=== PATIENT | male | born 1955 | race Caucasian/White ===

== ENCOUNTER 2024-04-20 11:30 | Observation (INO) | payer MEDICARE, OTHER, SELFPAY ==
[2024-04-20] VITALS (26 sets, daily range): BP systolic 119–177; BP diastolic 66–110; PULSE 109–126; TEMP 36.6–38.2; O2SAT 92–100; BMI 22.4
--- NOTE | 2024-04-20 11:53 | ECG_ITS ---
[facility] Test Date: 2024-04-20 Pat Name: MU KYLE Department: Room: - Gender: Male Legal Intern: : 1955 Requested By: Order Number: [id number] Reading MD: TIAGO PABLO Measurements Intervals [place] Rate: 117 P: 270 ME: 228 QRS: -54 QRSD: 94 T: 21 QT: 318 QTc: 387 Interpretive Statements 1220 Rapid atrial rhythm 2231 First degree AV block 2420 RSR (QR) in lead V1/V2, consistent with right ventricular conduction delay 2630 Left anterior fascicular block 9150 abnormal ECG No previous ECG available for comparison Electronically Signed On 04-20-2024 22:08:22 EDT by TIAGO PABLO
--- NOTE | 2024-04-20 12:08 | ED.GENADUL1 ---
HPI HPI - General Adult General Chief complaint: Upper Respiratory Infection Stated complaint: CHILLS, ABDOMINAL PAIN Time Seen by Provider: 04/20/24 11:52 Source: patient Mode of arrival: walk-in History of Present Illness HPI narrative: Patient is a 69-year-old male who is presenting to the ER with multiple complaints. Patient's chief concern is 1 week of intermittent fever, chills, night sweats, nausea. Patient has not seen a doctor in over 6 years, patient called [facility] office today trying to be seen as an outpatient and since patient has not been seen in over 6 years, he is no longer a current patient so he came to the ER. Patient has had a 8 to 10 pound weight loss in the past month. Patient has had 5-6 months of swelling and protrusion to his mid abdomen that is not painful, slightly getting bigger. Patient has no difficulty with flatulence, no difficulty with bowel movements. Patient has had 2 years of urinary incontinence, he has not seen any physician for that either. Patient has never had a stress test or echocardiogram. Patient did have a colonoscopy approximately 4 years ago. Patient has no recent contacts. Mild myalgia and arthralgia recently. All systems are negative except as noted/marked. All systems reviewed and otherwise negative. Nurses note and vital signs reviewed and patient is not hypoxic. General: The patient appears well and in no apparent distress. Patient is resting comfortably on cart. Patient is not toxic, lethargic, or listless Skin: Warm, dry, no pallor noted. There is no rash noted. No petechiae, purpura. Head: Normocephalic, atraumatic Eye: Normal conjunctiva, no drainage, EOMI. PERRL Ears, Nose, Mouth, and Throat: oral mucosa is moist. Nares patent. Mouth without vesicles. Cardiovascular: Regular Rate and Rhythm, no murmur, gallop, rub Respiratory: Patient is in no distress, no accessory muscle use, lungs are clear to auscultation, no wheezing, rales or rhonchi Back: non-tender, no CVA tenderness bilaterally to percussion. No CT LS midline pain GI: Patient has a somewhat firm protrusion to his mid abdomen that is above his umbilicus, goes approximately from his left flank to his right flank, no pulsatile mass, not tender to palpate. No flank pain or CVA tenderness bilateral. No suprapubic tenderness to palpation. Bowel sounds x 4. No tenderness to palpation, no pulsatile masses appreciated. No rebound, guarding, or rigidity noted. Abdominal protrusion/distention for 5 to 6 months. Musculoskeletal: Patient has full range of motion of all of the extremities, no motor, sensory, or focal neurological deficits Neurological: A&O x4, normal speech Psychiatric: Cooperative Related Data Home Medications ?Medication ?Instructions ?Recorded ?Confirmed No Known Home Medications 04/20/24 04/20/24 Allergies Allergy/AdvReac Type Severity Reaction Status Date / Time No Known Drug Allergies Allergy Verified 04/20/24 11:37 Opioid HPI Opioid Management Most Recent Opioid Data: No Data to Display PFSH PFSH Social History Little interest or pleasure in doing things: not at all Feeling down, depressed, or hopeless: not at all Exam Constitutional Vital Signs, click to edit/add: Last Vital Signs Temp 97.9 F 04/20/24 11:37 Pulse 121 H 04/20/24 14:00 Resp 19 04/20/24 14:00 BP 138/86 04/20/24 14:05 Pulse Ox 99 04/20/24 12:40 O2 Del Method Room Air 04/20/24 11:37 Course Vital Signs Vital signs: Vital Signs Temperature 97.9 F 04/20/24 11:37 Pulse Rate 120 H 04/20/24 11:37 Respiratory Rate 18 04/20/24 11:37 Blood Pressure 147/94 H 04/20/24 11:37 Pulse Oximetry 99 04/20/24 11:37 Oxygen Delivery Method Room Air 04/20/24 11:37 Temperature 97.9 F 04/20/24 11:37 Pulse Rate 121 H 04/20/24 14:00 Respiratory Rate 19 04/20/24 14:00 Blood Pressure 138/86 04/20/24 14:05 Pulse Oximetry 99 04/20/24 12:40 Oxygen Delivery Method Room Air 04/20/24 11:37 Medical Decision Making MDM Narrative Medical decision making narrative: Patient BUN and creatinine were 35/2.29. Patient does not have elevated white blood cell count. Patient CT does show significantly distended urinary bladder with associated severe bilateral hydronephrosis. Patient also has urinary tract infection. Patient has been given 2 L of lactated Ringer's, also has been given 1 g Rocephin. Patient has been tachycardic in the 130s/120s, this is why a second liter of IV fluids was given in spite of the national shortage on IV fluids secondary to her cancer. Patient had a Mcgovern catheter placed, patient had over 2200 cc of fluid that has been drained in increments over thousand. Patient did not have a vasovagal response. Patient will be admitted for urinary tension, was given IV Rocephin. We do not have urology on-call. 1410 I did speak to the hospitalist, Dr. Aguilar. He is willing to accept the patient in admission, treat with antibiotics, IV fluids, and CRP and creatinine improved. Patient has no kidney history that he is aware 1640 Dr Aguilar came to see and evaluate the patient in the ER. Patient is feeling significantly better after the Mcgovern catheter was placed. See David RN nursing documentation A copy of patient's CT report and lab work has been given to the patient as well. Lab Data Labs: Lab Results 04/20/24 04/20/24 04/20/24 Range/Units 11:56 12:15 12:57 WBC 9.5 (4.0-11.0) 10^3/uL RBC 3.65 L (4.70-6.10) 10^6/uL Hgb 11.5 L (14.0-18.0) g/dL Hct 34.7 L (42.0-54.0) % MCV 95.1 H (80.0-94.0) fL MCH 31.5 (25.9-34.0) pg MCHC 33.1 (29.9-35.2) g/dL RDW 11.9 (11.0-15.0) % Plt Count 223 (150-450) 10^3/uL MPV 11.2 (9.5-13.5) fL Seg Neuts % (Manual) 74.0 (43.0-75.0) Lymphocytes % (Manual) 12.0 L (20.5-60.0) % Monocytes % (Manual) 14.0 H (1.7-12.0) % Eosinophils % (Manual) 0.0 L (0.9-7.0) % Basophils % (Manual) 0.0 L (0.2-2.0) % Neutrophils # (Manual) 7.03 H (1.4-6.5) 10^3/uL Lymphocytes # (Manual) 1.14 L (1.20-3.80) 10^3/uL Monocytes # (Manual) 1.33 H (0.30-0.80) 10^3/uL Eosinophils # (Manual) 0.00 (0.00-0.70) 10^3/uL Basophils # (Manual) 0.00 (0.00-0.10) 10^3/uL PT 11.8 H (9.0-11.6) sec INR 1.13 VBG pH 7.414 (7.330-7.430) VBG pCO2 41.7 (40.0-52.0) mmHg Sodium 138 (136-145) mmol/L Potassium 3.9 (3.5-5.1) mmol/L Chloride 102 (98-107) mmol/L Carbon Dioxide 25.0 (21.0-32.0) mmol/L Anion Gap 14.9 BUN 35.0 H (7.0-18.0) mg/dL Creatinine 2.29 H (0.70-1.30) mg/dL Est GFR ( Amer) 35 L (>=60 mL/min/1.73m^2) Est GFR (Non-Af Amer) 28 L (>=60 mL/min/1.73m^2) BUN/Creatinine Ratio 15.3 Glucose 115 H (74-106) mg/dL Lactate 0.8 (0.4-2.0) mmol/L Calcium 9.4 (8.5-10.1) mg/dL Magnesium 1.9 (1.8-2.4) mg/dL Total Bilirubin 1.0 (0.2-1.0) mg/dL AST 22 (15-37) U/L ALT 42 (16-63) U/L Alkaline Phosphatase 123 H (46-116) U/L Troponin I High Sens 14.5 (4.0-76.1) pg/mL Total Protein 7.1 (6.4-8.2) g/dL Albumin 2.9 L (3.4-5.0) g/dL Globulin 4.2 g/dL Albumin/Globulin Ratio 0.7 Urine Color Yellow (YELLOW) Urine Clarity Cloudy A (CLEAR) Urine pH 6.0 (5.0-9.0) Ur Specific [place] 1.010 (1.005-1.025) Urine Protein 100 A (NEG/TRACE) mg/dL Urine Glucose (UA) Negative (NEGATIVE) mg/dL Urine Ketones Negative (NEGATIVE) mg/dL Urine Occult Blood Small A (NEGATIVE) Urine Nitrite Negative (NEGATIVE) Urine Bilirubin Negative (NEGATIVE) Urine Urobilinogen 0.2 (0.2-1.0) EU/dL Ur Leukocyte Esterase Large A (NEGATIVE) Urine RBC 2-5 A (0-2) #/HPF Urine WBC >100 A (NONE SEEN) #/HPF Ur Squamous Epith Cells Rare (NONE/RARE) #/LPF Ur Transition Epith Cell Rare A (NONE SEEN) #/LPF Urine Crystals None seen (None Seen) #/HPF Urine Bacteria Moderate A (NONE SEEN) #/HPF Urine Casts None seen (NONE SEEN) #/LPF Urine Mucus Trace A (NONE SEEN) Ur Culture Indicated? Yes SARS-CoV-2 Ag (CV2AG) Negative (NEGATIVE) ECG Data Attestation: I personally reviewed and interpreted this ECG as follows: (EKG interpretation. Tachycardic sinus rhythm at 117, normal axis deviation. QTc of 387. AK interval of 228, first-degree [place]. [address], reading also left anterior fascicular block) Discharge Plan Discharge Chief Complaint: Upper Respiratory Infection Clinical Impression: Urinary retention, LYNDA (acute kidney injury), Urinary tract infection, Flu-like symptoms Patient Disposition: Admitted as Observation Time of Disposition Decision: 14:19 Condition: Fair
[2024-04-20 12:13] LABS: Hematocrit 34.7 % (42.0-54.0); Hemoglobin 11.5 g/dL (14.0-18.0); Mean Corpuscular HGB Conc 33.1 g/dL (29.9-35.2); Mean Corpuscular Hemoglobin 31.5 pg (25.9-34.0); Mean Corpuscular Volume 95.1 fL (80.0-94.0); Mean Platelet Volume 11.2 fL (9.5-13.5); Platelet Count 223 10^3/uL (150-450); Red Blood Count 3.65 10^6/uL (4.70-6.10); Red Cell Distribution Width 11.9 % (11.0-15.0); White Blood Count 9.5 10^3/uL (4.0-11.0)
[2024-04-20] MEDS: LACTATED RINGER'S SOLUTION 1,000 ML 999 ML IV (12:13)
[2024-04-20 12:16] LABS: PCO2 VBG 41.7 mmHg (40.0-52.0); pH VBG 7.414 (7.330-7.430)
[2024-04-20 12:29] LABS: INR 1.13; Prothrombin Time 11.8 sec (9.0-11.6)
[2024-04-20 12:34] LABS: Lactate/Lactic Acid 0.8 mmol/L (0.4-2.0)
[2024-04-20 12:41] LABS: Internal Control Within Normal Limits; SARS-CoV-2 Ag NEGATIVE (NEGATIVE)
[2024-04-20 12:42] LABS: Alanine Aminotransferase 42 U/L (16-63); Albumin Globulin Ratio 0.7; Albumin Level 2.9 g/dL (3.4-5.0); Alkaline Phosphatase 123 U/L (46-116); Anion Gap 14.9; Aspartate Amino Transferase 22 U/L (15-37); BUN Creatinine Ratio 15.3; Calcium 9.4 mg/dL (8.5-10.1); Chloride 102 mmol/L (98-107); Estimated GFR (African America 35 (>=60 mL/min/1.73m^2); Estimated GFR (Non-African Ame 28 (>=60 mL/min/1.73m^2); Globulin 4.2 g/dL; Glucose 115 mg/dL (74-106); Magnesium 1.9 mg/dL (1.8-2.4); Potassium 3.9 mmol/L (3.5-5.1); Sodium 138 mmol/L (136-145); Total Protein 7.1 g/dL (6.4-8.2); Troponin I High Sensitivity 14.5 pg/mL (4.0-76.1)
[2024-04-20 12:43] LABS: Lymphocytes Absolute Manual 1.14 10^3/uL (1.20-3.80); Monocytes Absolute Manual 1.33 10^3/uL (0.30-0.80); Segmented Neut Absolute Manual 7.03 10^3/uL (1.4-6.5)
--- NOTE | 2024-04-20 13:02 | CT_ITS ---
[address] [address] Patient Name: MU KYLE MRN: [id number] date: 1955 Sex: M Assigned Patient Location: ER Current Patient Location: ER Accession/Order Number: [id number] Exam Date: 04/20/2024 12:58 Report Date: 04/20/2024 13:19 At the request of: HAYLEY GR Procedure: CT abdomen pelvis wo con EXAMINATION: CT abdomen pelvis wo con HISTORY: Distended abdomen COMPARISON: No relevant comparison available. TECHNIQUE: Axial, Coronal, and Sagittal images were created without IV contrast. Dose reduction techniques were achieved by using automated exposure control and/or adjustment of mA and/or kV according to patient size and/or use of iterative reconstruction technique. FINDINGS: LUNG BASES: No visible pulmonary or pleural disease. Cardiomegaly LIVER: No enlargement, atrophy, abnormal density, or significant focal lesion. BILIARY: No dilatation or calcification. PANCREAS: No lesion, fluid collection, ductal dilatation, or atrophy. SPLEEN: No enlargement or focal lesion. ADRENALS: No mass or enlargement. KIDNEYS: Severe bilateral hydroureteronephrosis with the ureters measuring up to 4 cm in diameter BOWEL/MESENTERY: No visible mass, obstruction, or bowel wall thickening. Normal appendix AORTA/VASCULAR: No aortic aneurysm. Moderate calcific atherosclerosis RETROPERITONEUM: No mass or adenopathy. LYMPH NODES: No adenopathy. URINARY BLADDER: Marked distention of the urinary bladder which measures 20.7 cm in craniocaudal dimension with irregular wall thickening PELVIC ORGANS: Enlarged prostate gland with calcifications. The prostate gland measures 5 cm in diameter ABDOMINAL WALL: No mass or hernia. BONES: No bony lesion or fracture. OTHER: Some mild scattered ascites primarily in the right paracolic gutter CT/CT abdomen pelvis wo con IMPRESSION: Marked distention of the urinary bladder with associated severe bilateral hydroureteronephrosis. I favor bladder outlet obstruction with an enlarged prostate gland Electronically authenticated by: SANDRA EMERY Date: 04/20/2024 13:19
[2024-04-20 13:11] LABS: Bilirubin Urine NEGATIVE (NEGATIVE); Blood Urine SMALL (NEGATIVE); Clarity Urine CLOUDY (CLEAR); Color Urine YELLOW (YELLOW); Glucose Urine UA NEGATIVE (NEGATIVE); Ketones Urine NEGATIVE (NEGATIVE); Leukocyte Esterase Urine LARGE (NEGATIVE); Nitrite Urine NEGATIVE (NEGATIVE); Protein Urine 100 mg/dL (NEG/TRACE); Urobilinogen Urine 0.2 EU/dL (0.2-1.0)
[2024-04-20 13:19] LABS: Bacteria Urine MODERATE #/HPF (NONE SEEN); Cast Seen? NONE SEEN #/LPF (NONE SEEN); Crystals Seen? None Seen #/HPF (None Seen); Mucus Urine TRACE (NONE SEEN); Squamous Epithelial Cell Urine RARE #/LPF (NONE/RARE); Transitional Epi Cells Urine RARE #/LPF (NONE SEEN); WBC Urine >100 #/HPF (NONE SEEN)
[2024-04-20 13:20] LABS: Urine Culture Indicated YES
[2024-04-20] MEDS: CEFTRIAXONE 1,000 MG in 0.9 % SODIUM CHLORIDE 50 ML 100 MG IV (14:33)
[2024-04-20] MEDS: LACTATED RINGER'S SOLUTION 1,000 ML 1000 ML IV (14:33)
--- NOTE | 2024-04-20 14:58 | PM.HP ---
HPI H&P: HPI History of Present Illness Chief complaint: CHILLS, ABDOMINAL PAIN, URINARY RETENTION, UTI LYNDA Narrative: 69-year-old male with no known past medical history presented to ER with inability to urinate, lower abdominal pressure/pain. According to the patient, he has noticed difficulty in urination and lower abdominal pressure/pain for 6 months now. For past couple of days he noticed that he was having fevers and chills. His abdominal pain/pressure has been progressively getting worse until this morning where he could not get comfortable so he decided come to ED for further evaluation. Patient has not seen a physician for years and does not take any medications currently. On workup in ER, he was found to have severe bladder outlet obstruction secondary to enlarged prostate resulting in severe bilateral hydroureteronephrosis resulting in acute kidney injury from obstructive uropathy. Urinary catheter was inserted in ER and over 1 L of urine was drained with improvement in patient's symptoms the patient was admitted for observation to ensure his renal function is improving. Of note, there was some xavier blood noted in Larios catheter. Opioid HPI Opioid Management Most Recent Pain and Opioid Data: No Data to Display Review of Systems ROS Status of ROS 10 or more systems reviewed and unremarkable except as noted in history and below PFSH PFSH Social History (Updated 04/20/24 @ 15:02 by Shaikh Lauren MD) Within the past year, how often did you have a drink containing alcohol: monthly or less Within the past year, how many standard drinks containing alcohol did you have on a typical day: 1 or 2 Within the past year, how often did you have six or more drinks on one occasion: never Total score: 0 Score interpretation: A score less than 4 is consistent with normal alcohol consumption. Smoking status: Never smoker Non-prescribed substance use: denies use Little interest or pleasure in doing things: not at all Feeling down, depressed, or hopeless: not at all Meds Home Medications and Allergies Home Medications ?Medication ?Instructions ?Recorded ?Confirmed ?Type No Known Home Medications 04/20/24 04/20/24 History Allergies Allergy/AdvReac Type Severity Reaction Status Date / Time No Known Drug Allergies Allergy Verified 04/20/24 11:37 Exam Constitutional Vital Signs, click to edit/add: Last Vital Signs Temp 97.9 F 04/20/24 11:37 Pulse 121 H 04/20/24 14:00 Resp 19 04/20/24 14:00 BP 138/86 04/20/24 14:05 Pulse Ox 99 04/20/24 12:40 O2 Del Method Room Air 04/20/24 11:37 Documenting provider has reviewed patient's vital signs: yes Common normals: no apparent distress and oriented x3 General appearance: cooperative HENTX Common normals: normocephalic and head/scalp atraumatic Head and scalp: normocephalic and atraumatic Eye Common normals: conjunctivae normal and no scleral icterus Conjunctiva: conjunctiva(e) normal Respiratory Common normals: normal respiratory effort and clear to auscultation bilaterally Effort & inspection: able to speak in complete sentences Auscultation: clear to auscultation bilaterally Cardio Common normals: regular rate, S1 normal heart sound and S2 normal heart sound Rate: regular rate Heart sounds: S1 normal and S2 normal GI Common normals: Normal to inspection, nondistended, normoactive bowel sounds present, soft to palpation, non-tender and no hepatosplenomegaly Palpation: soft and no hepatosplenomegaly Bladder/kidney exam: catheter in place Catheter type (Male): urethral (xavier blood noted in catheter) Extremity Common normals: no clubbing, cyanosis or edema Neuro Common normals: oriented x3, moves all extremities and no focal motor deficits Psych Common normals: mental status grossly normal, denies hallucinations, denies homicidal ideation and denies suicidal ideation Results Labs Labs: Short CBC 04/20/24 Range/Units 11:56 WBC 9.5 (4.0-11.0) 10^3/uL Hgb 11.5 L (14.0-18.0) g/dL Hct 34.7 L (42.0-54.0) % Plt Count 223 (150-450) 10^3/uL BMP 04/20/24 11:56 Sodium 138 Potassium 3.9 Chloride 102 Carbon Dioxide 25.0 BUN 35.0 H Creatinine 2.29 H Glucose 115 H Calcium 9.4 Liver Function 04/20/24 Range/Units 11:56 Total Bilirubin 1.0 (0.2-1.0) mg/dL AST 22 (15-37) U/L ALT 42 (16-63) U/L Alkaline Phosphatase 123 H (46-116) U/L Albumin 2.9 L (3.4-5.0) g/dL Urine 04/20/24 Range/Units 12:57 Urine Color Yellow (YELLOW) Urine Clarity Cloudy A (CLEAR) Urine pH 6.0 (5.0-9.0) Ur Specific [place] 1.010 (1.005-1.025) Urine Protein 100 A (NEG/TRACE) mg/dL Urine Glucose (UA) Negative (NEGATIVE) mg/dL ABG ABG results: 04/20/24 11:56 VBG pH 7.414 VBG pCO2 41.7 Assessment and Plan Assessment and Plan (1) Urinary tract infection: Assessment and Plan: On IV rocephine. F/u urine cx Qualifiers: Urinary tract infection type: acute cystitis Hematuria presence: with hematuria Qualified Code(s): N30.01 - Acute cystitis with hematuria (2) Hydroureteronephrosis: Assessment and Plan: due to bladder outlet obstruction, relieved after larios insertion. Repeat US tomorrow for follow up (3) LYNDA (acute kidney injury): Assessment and Plan: LYNDA from bladder outlet obstruction.. Suspect he will likely has some residual renal dysfunction as this has been going on for 6 months. Monitor UO, serum cr closely. (4) Enlarged prostate: Assessment and Plan: PSA ordered. Started on Floamx. Will need outpatient w/u by Urology. (5) Urinary retention: Assessment and Plan: Due to nelraged prostate. PSA ordered. Catheter in place. Most likely he will need to go home with urinary catheter. (6) Elevated blood pressure reading without diagnosis of hypertension: Assessment and Plan: likely because of severe pain as patient was really uncomfortable from bladder outlet obstruction. Improved now. Monitor BP Iv Hydralazine as needed Urinary Catheter Management Urinary Catheter Management Urethral: Cath placed during this visit: yes Urethral indwelling: Yes Reason for continuing: urinary obstruction Insertion date: 04/20/24 Insertion time: 14:00
--- NOTE | 2024-04-20 16:26 | ECG_ITS ---
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
[2024-04-20] MEDS: 0.9 % SODIUM CHLORIDE 1,000 ML 1000 ML IV (16:27)
[2024-04-20] MEDS: LACTATED RINGER'S SOLUTION 1,000 ML 125 ML IV (16:27)
--- NOTE | 2024-04-20 17:13 | XR_ITS ---
The [address] [address] Patient Name: MU KYLE MRN: [id number] date: 1955 Sex: M Assigned Patient Location: MS Current Patient Location: MS Accession/Order Number: [id number] Exam Date: 04/20/2024 17:45 Report Date: 04/20/2024 19:43 At the request of: SHAIKH YANIRA Procedure: XR chest 1V EXAM: XR chest 1V HISTORY: chest pain . Chills. Body aches. COMPARISON: TECHNIQUE: AP upright portable. FINDINGS: Cardiomediastinal silhouette and pulmonary vascularity are within normal limits. The lungs and the costophrenic angles are clear. XR/XR chest 1V IMPRESSION: No acute cardiopulmonary disease. Electronically authenticated by: EDUARDO CORONADO Date: 04/20/2024 19:43
[2024-04-20] MEDS: DILTIAZEM HCL 25 MG/5 ML VIAL 10 MG IV (17:19)
[2024-04-20 17:22] LABS: Troponin I High Sensitivity 21.5 pg/mL (4.0-76.1)
[2024-04-20] MEDS: ACETAMINOPHEN 325 MG TABLET 650 MG PO (20:13)
[2024-04-20] MEDS: TAMSULOSIN HCL 0.4 MG CAPSULE PO (20:14)
[2024-04-20] MEDS: METOPROLOL TARTRATE 25 MG TABLET PO (20:14)
[2024-04-20] MEDS: OXYCODONE HCL 5 MG TABLET PO (20:14)
[2024-04-20] MEDS: ONDANSETRON PF 4 MG/2 ML VIAL IV (20:14)
[2024-04-20 20:46] LABS: Hematocrit 31.6 % (42.0-54.0); Hemoglobin 10.8 g/dL (14.0-18.0)
[2024-04-20 21:05] LABS: Troponin I High Sensitivity 23.2 pg/mL (4.0-76.1)
[2024-04-20 23:11] LABS: Basophils Percent Auto 0.4 % (0.2-2.0); Eosinophils Percent Auto 0.3 % (0.9-7.0); Hematocrit 29.6 % (42.0-54.0); Hemoglobin 10.1 g/dL (14.0-18.0); Immature Granulocytes Abs Auto 0.03 10^3/uL (0.00-0.03); Immature Granulocytes Pct Auto 0.3 % (0.0-0.5); Lymphocytes Absolute Auto 0.6 10^3/uL (1.2-3.8); Lymphocytes Percent Auto 6.5 % (20.5-60.0); Mean Corpuscular HGB Conc 34.1 g/dL (29.9-35.2); Mean Corpuscular Hemoglobin 32.3 pg (25.9-34.0); Mean Corpuscular Volume 94.6 fL (80.0-94.0); Monocytes Absolute Auto 1.4 10^3/uL (0.3-0.8); Monocytes Percent Auto 13.7 % (1.7-12.0); Neutrophils Absolute Auto 7.8 10^3/uL (1.4-6.5); Neutrophils Percent Auto 78.8 % (43.0-75.0); Platelet Count 241 10^3/uL (150-450); Red Blood Count 3.13 10^6/uL (4.70-6.10); Red Cell Distribution Width 11.9 % (11.0-15.0); White Blood Count 9.9 10^3/uL (4.0-11.0)
[2024-04-20 23:25] LABS: INR 1.16; Prothrombin Time 12.1 sec (9.0-11.6)
[2024-04-20 23:27] LABS: Magnesium 1.6 mg/dL (1.8-2.4); Phosphorus 3.4 mg/dL (2.6-4.7)
[2024-04-20 23:30] LABS: Alanine Aminotransferase 28 U/L (16-63); Albumin Globulin Ratio 0.7; Alkaline Phosphatase 107 U/L (46-116); Anion Gap 10.6; Aspartate Amino Transferase 17 U/L (15-37); BUN Creatinine Ratio 14.6; Bilirubin Total 0.5 mg/dL (0.2-1.0); Calcium 8.2 mg/dL (8.5-10.1); Carbon Dioxide 25.3 mmol/L (21.0-32.0); Chloride 105 mmol/L (98-107); Estimated GFR (African America 41 (>=60 mL/min/1.73m^2); Estimated GFR (Non-African Ame 34 (>=60 mL/min/1.73m^2); Glucose 171 mg/dL (74-106); Potassium 3.9 mmol/L (3.5-5.1); Sodium 137 mmol/L (136-145)
[2024-04-20 23:32] LABS: Lactate/Lactic Acid 0.7 mmol/L (0.4-2.0)
[2024-04-20 23:33] LABS: PCO2 VBG 39.5 mmHg (40.0-52.0); pH VBG 7.432 (7.330-7.430)
[2024-04-21] VITALS (8 sets, daily range): BP systolic 114; BP diastolic 73; PULSE 97–116; TEMP 36.8–37.1; O2SAT 97
[2024-04-21] MEDS: LACTATED RINGER'S SOLUTION 1,000 ML 125 ML IV ×2 (00:08→08:17)
[2024-04-21 06:02] LABS: Basophils Percent Auto 0.4 % (0.2-2.0); Eosinophils Absolute Auto 0.1 10^3/uL (0.0-0.7); Eosinophils Percent Auto 1.3 % (0.9-7.0); Hematocrit 28.8 % (42.0-54.0); Hemoglobin 9.8 g/dL (14.0-18.0); Immature Granulocytes Abs Auto 0.04 10^3/uL (0.00-0.03); Immature Granulocytes Pct Auto 0.4 % (0.0-0.5); Lymphocytes Absolute Auto 1.1 10^3/uL (1.2-3.8); Lymphocytes Percent Auto 10.7 % (20.5-60.0); Mean Corpuscular Hemoglobin 31.9 pg (25.9-34.0); Mean Corpuscular Volume 93.8 fL (80.0-94.0); Monocytes Absolute Auto 1.4 10^3/uL (0.3-0.8); Monocytes Percent Auto 14.3 % (1.7-12.0); Neutrophils Absolute Auto 7.2 10^3/uL (1.4-6.5); Neutrophils Percent Auto 72.9 % (43.0-75.0); Platelet Count 218 10^3/uL (150-450); Red Blood Count 3.07 10^6/uL (4.70-6.10); Red Cell Distribution Width 11.9 % (11.0-15.0); White Blood Count 9.8 10^3/uL (4.0-11.0)
[2024-04-21 06:13] LABS: Alanine Aminotransferase 31 U/L (16-63); Albumin Globulin Ratio 0.6; Albumin Level 1.9 g/dL (3.4-5.0); Alkaline Phosphatase 104 U/L (46-116); Aspartate Amino Transferase 21 U/L (15-37); BUN Creatinine Ratio 13.7; Bilirubin Total 0.7 mg/dL (0.2-1.0); Carbon Dioxide 24.1 mmol/L (21.0-32.0); Chloride 105 mmol/L (98-107); Estimated GFR (African America 43 (>=60 mL/min/1.73m^2); Estimated GFR (Non-African Ame 35 (>=60 mL/min/1.73m^2); Globulin 3.1 g/dL; Glucose 119 mg/dL (74-106); Potassium 4.1 mmol/L (3.5-5.1); Sodium 138 mmol/L (136-145)
--- NOTE | 2024-04-21 07:00 | US_ITS ---
[address] [address] Patient Name: MU KYLE MRN: [id number] date: 1955 Sex: M Assigned Patient Location: MS Current Patient Location: MS Accession/Order Number: [id number] Exam Date: 04/21/2024 08:45 Report Date: 04/21/2024 11:37 At the request of: SHAIKH YANIRA Procedure: US renal BI EXAMINATION: US renal BI HISTORY: urinary obstruction COMPARISON: 04/20/2024 CT TECHNIQUE: Ultrasound examination was performed of the bladder. FINDINGS: Right Kidney: Normal in size, contour and cortical echotexture. The cortex measures 1.5 cm. Moderate right hydronephrosis. No solid cortical mass. Height: 7.11 cm Length: 12.83 cm Width: 6.72 cm Left Kidney: Normal in size, contour and cortical echotexture. The cortex measures 1.3 cm. Moderate left hydronephrosis. No solid cortical mass Height: 5.33 cm Length: 11.54 cm Width: 5.25 cm The urinary bladder wall is markedly thickened measuring 1.4 cm. Echogenic material within the urinary bladder, nonspecific. Balloon catheter noted. Urinary bladder volume 149 mL Incidentally identified in the right hepatic lobe is a 1 cm echogenic focus as well as a heterogeneous 5.5 x 3.6 x 3.8 cm mass US/US renal BI IMPRESSION: 5.5 cm hepatic mass. Postcontrast CT exam is recommended for further evaluation Markedly thickened urinary bladder wall with internal low-level echoes, nonspecific Electronically authenticated by: SANDRA EMERY Date: 04/21/2024 11:37
[2024-04-21] MEDS: TAMSULOSIN HCL 0.4 MG CAPSULE PO (08:17)
[2024-04-21] MEDS: METOPROLOL TARTRATE 25 MG TABLET PO (08:17)
--- NOTE | 2024-04-21 08:46 | CM.NOTE ---
Medicare Outpatient Observation Notice discussed with pt, pt verbalizes understanding and signs paper. Original given to pt and copy placed on pt's chart.
--- NOTE | 2024-04-21 10:14 | CM.NOTE ---
Rounds made with Dr. Aguilar, discussed findings with pt and importance of f/u with urologist. Pt does not have PCP, pt given paper with accepting PCP's. Pt would like to see Terri Valdez in [place], [place]. Estella (Med-Surg) attendance secretary contacted office for f/u appt, pt will need to fill out paperwork prior to scheduling appt. Notified Dina Lombardi and she will attempt to schedule.
[2024-04-21 11:09] LABS: PSA, Free 0.49 ng/mL; Prostate Specific Ag 1.7 ng/mL (0.0-4.0)
--- NOTE | 2024-04-21 13:30 | PM.DS1 ---
DS: Providers Provider Date of admission: 04/20/24 14:48 Primary care physician: Non-Staff Physician, Admitting clinician: Shaikh Lauren Attending physician on admission: Shaikh Lauren Consults: 04/20/24 14:31 Occupational Therapy Eval and Treat Routine Reason for consultation: Ambulatory dysfunction/weakness Physical Therapy Eval and Treat Routine Reason for consultation: Ambulatory dysfunction/weakness Attending physician on discharge: Shaikh Lauren Discharging clinician: Shaikh Lauren Anticipated date of discharge: 04/21/24 DS: Diagnosis Discharge Diagnosis (1) Urinary tract infection: Assessment and plan: Will discharge on oral Ceftin. Urine cx pending Qualifiers: Hematuria presence: with hematuria Urinary tract infection type: acute cystitis Qualified Code(s): N30.01 - Acute cystitis with hematuria (2) Hydroureteronephrosis: Assessment and plan: US shows improvement, now has moderate hydronephrosis. Outpatient f/u with Urology. (3) LYNDA (acute kidney injury): Assessment and plan: Renal fx improved but Cr still above normal limit. Likely has underlying CKD from chronic bladder outlet obstruction. (4) Enlarged prostate: Assessment and plan: Will d/c with Mcgovern Catheter. Patient will need outpatient urology. (5) Urinary retention: Assessment and plan: Will d/c with Mcgovern Catheter. Patient will need outpatient urology. (6) Anemia: Assessment and plan: Never had Colonoscopy. Needs outpatient w/u for anemia. Qualifiers: Anemia type: unspecified type Qualified Code(s): D64.9 - Anemia, unspecified (7) HTN (hypertension): Assessment and plan: New diagnosis. Will discharge on Lopressor as patient has atrial tachycardia. Qualifiers: Hypertension type: primary hypertension Qualified Code(s): I10 - Essential (primary) hypertension (8) Chest pain: Assessment and plan: No acute ST/T wave changes. Troponin negative. Qualifiers: Chest pain type: unspecified Qualified Code(s): R07.9 - Chest pain, unspecified (9) Liver mass: Assessment and plan: 5 cm liver mass noted on US. Will need Liver protocol CT as outpatient. D/w patient (10) Atrial tachycardia: Assessment and plan: Atrial tachycardia. HR improved with addition of Lopressor. No afib based on my interpretation. DS: Summary Hospital Course Hospital Course: 69-year-old male with no known past medical history presented to ER with inability to urinate, lower abdominal pressure/pain. For past couple of days he noticed that he was having fevers and chills. His abdominal pain/pressure progressively getting worsened to the point where he could not get comfortable so he decided come to ED for further evaluation. Patient has not seen a physician for years and does not take any medications currently. On workup in ER, he was found to have severe bladder outlet obstruction secondary to enlarged prostate resulting in severe bilateral hydroureteronephrosis resulting in acute kidney injury from obstructive uropathy. Urinary catheter was inserted in ER and over 1 L of urine was drained with improvement in patient's symptoms. Patient was admitted for observation to ensure his renal function is improving. Of note, there was some xavier blood noted in Mcgovern catheter that cleared up during the course of admission. His serum creatinine also improved to 1.9. He likely has mild CKD from chronic bladder outlet obstruction. Patient also developed mild chest discomfort during hospital admission. EKG did not reveal any acute ischemic changes and his cardiac enzymes (trop x3 was negative). Patient subsequently had renal US that showed improvement in b/l hydronephrosis. He was also noted to have 5 cm Liver mass for which additional imaging will be required to ascertain the underlying etiology. This was discussed with the patient in great detail. All questions and concerns were addressed and answered. Patient was given information on local PCP accepting patients. Patient was referred to Urology, their office will contact the patient to set up an appointment. Patient is medically stable for discharge. Will discharge with indwelling urinary catheter. Patient educated on worrisome signs and symptoms. He was instructed to return to ED if he developed those symptoms. Status at Discharge Functional status at discharge: independent ambulation Overall status at discharge: patient is back to baseline Time Spent with Patient Time attestation: Total time spent providing and/or coordinating discharge services: Time spent: greater than 30 minutes Exam Constitutional Vital Signs, click to edit/add: Last Vital Signs Temp 98.3 F 04/21/24 07:38 Pulse 111 H 04/21/24 12:00 Resp 18 04/21/24 07:38 BP 114/73 04/21/24 07:38 Pulse Ox 97 04/21/24 07:38 O2 Del Method Room Air 04/21/24 07:38 Documenting provider has reviewed patient's vital signs: yes Common normals: no apparent distress and oriented x3 General appearance: cooperative Respiratory Common normals: normal respiratory effort and clear to auscultation bilaterally Effort & inspection: able to speak in complete sentences Auscultation: clear to auscultation bilaterally Cardio Common normals: regular rate, S1 normal heart sound and S2 normal heart sound Rate: regular rate Heart sounds: S1 normal and S2 normal GI Common normals: Normal to inspection, nondistended, normoactive bowel sounds present, soft to palpation, non-tender and no hepatosplenomegaly Palpation: soft and no hepatosplenomegaly Bladder/kidney exam: catheter in place Catheter type (Male): urethral Extremity Common normals: no clubbing, cyanosis or edema Neuro Common normals: oriented x3, moves all extremities and no focal motor deficits Psych Common normals: mental status grossly normal, denies hallucinations, denies homicidal ideation and denies suicidal ideation DS: Data Data Completed and Pending Labs on day of discharge: Labs from last 24 hours 04/21/24 04/20/24 04/20/24 05:46 22:00 20:26 WBC 9.8 9.9 RBC 3.07 L 3.13 L Hgb 9.8 L 10.1 L 10.8 L Hct 28.8 L 29.6 L 31.6 L MCV 93.8 94.6 H MCH 31.9 32.3 MCHC 34.0 34.1 RDW 11.9 11.9 Plt Count 218 241 MPV 11.0 11.0 Neut % (Auto) 72.9 78.8 H Lymph % (Auto) 10.7 L 6.5 L [place] % (Auto) 14.3 H 13.7 H Eos % (Auto) 1.3 0.3 L Baso % (Auto) 0.4 0.4 Neut # (Auto) 7.2 H 7.8 H Lymph # (Auto) 1.1 L 0.6 L [place] # (Auto) 1.4 H 1.4 H Eos # (Auto) 0.1 0.0 Baso # (Auto) 0.0 0.0 Abs Immat Gran (auto) 0.04 H 0.03 Imm/Tot Granulo (auto) 0.4 0.3 PT 12.1 H INR 1.16 VBG pH 7.432 H VBG pCO2 39.5 L Sodium 138 137 Potassium 4.1 3.9 Chloride 105 105 Carbon Dioxide 24.1 25.3 Anion Gap 13.0 10.6 BUN 26.0 H 29.0 H Creatinine 1.90 H 1.98 H Est GFR ( Amer) 43 L 41 L Est GFR (Non-Af Amer) 35 L 34 L BUN/Creatinine Ratio 13.7 14.6 Glucose 119 H 171 H Lactate 0.7 Calcium 8.0 L 8.2 L Phosphorus 3.4 Magnesium 1.6 L Total Bilirubin 0.7 0.5 AST 21 17 ALT 31 28 Alkaline Phosphatase 104 107 Troponin I High Sens 23.2 Total Protein 5.0 L 5.0 L Albumin 1.9 L 2.0 L Globulin 3.1 3.0 Albumin/Globulin Ratio 0.6 0.7 Prostate Specific Ag Free PSA % Free PSA TSH 04/20/24 04/20/24 16:39 11:56 WBC RBC Hgb Hct MCV MCH MCHC RDW Plt Count MPV Neut % (Auto) Lymph % (Auto) [place] % (Auto) Eos % (Auto) Baso % (Auto) Neut # (Auto) Lymph # (Auto) [place] # (Auto) Eos # (Auto) Baso # (Auto) Abs Immat Gran (auto) Imm/Tot Granulo (auto) PT INR VBG pH VBG pCO2 Sodium Potassium Chloride Carbon Dioxide Anion Gap BUN Creatinine Est GFR ( Amer) Est GFR (Non-Af Amer) BUN/Creatinine Ratio Glucose Lactate Calcium Phosphorus Magnesium Total Bilirubin AST ALT Alkaline Phosphatase Troponin I High Sens 21.5 Total Protein Albumin Globulin Albumin/Globulin Ratio Prostate Specific Ag 1.7 Free PSA 0.49 % Free PSA 28.8 TSH 3.300 Discharge Plan Discharge Disposition: Home, Self-Care Condition: Fair Discharge Medications: New tamsulosin [Flomax] 0.4 mg capsule 0.4 mg PO DAILY Qty: 30 0RF metoprolol tartrate 25 mg tablet 25 mg PO BID Qty: 60 0RF cefuroxime axetil 250 mg tablet 250 mg PO BID 7 Days Qty: 14 0RF Discontinued B-complex with vitamin C Tablet 1 tab PO DAILY saw palmetto 450 mg capsule 450 mg PO DAILY Rx Instructions: give with food (meal/snack) Activity: increase activity as tolerated Diet: advance to your usual diet Print Language: Icelandic Patient Instructions: Acute Kidney Injury (DC), Enlarged Prostate (BPH) (DC), Mcgovern Catheter Placement and Care (DC), Urinary Leg Bag (GEN) Forms: Portal Instructions Follow Up Appointments: [facility] will call the patient in the next couple of days to schedule a follow-up appt. [phone] A new patient packet was given to patient to fill out. Packet was then faxed to [facility] for consideration of follow up appt. [facility] office will call the patient to schedule appt or to decline new patient application. [facility] - [phone] If declined, please seek a new physician to schedule a hospital stay follow-up appt.
--- NOTE | 2024-04-21 14:37 | NUTR.NU ---
Pt was admitted 04/20/24 w/UTI, LYNDA d/t obstructive uropathy, HTN, anemia, et al. Regular diet is appropriate as tolerated. PO intakes meet >75% of his estimated nutrient requirements, calculated at 3068-3186 kcal (28-32 kcal/kg IBW 72.7 kg), 87-109 gm PRO (1.2-1.5 gm/kg IBW 72.7 kg), 1884-6367 mL fluid (30-35 mL/kg CBW 68.7 kg). Abnormal labs obtained today indicate anemia, hypocalcemia, inflammation, impaired renal function. Encourage balanced diet, healthy food choices, and adequate fluid intakes. Will continue to follow PRN.
[2024-04-22 04:56] LABS: A. calcoaceticus-baumannii Cpx NOT DETECTED (NOT DETECTE); Bacteroides fragilis NOT DETECTED (NOT DETECTE); Candida albicans NOT DETECTED (NOT DETECTE); Candida auris NOT DETECTED (NOT DETECTE); Candida glabrata NOT DETECTED (NOT DETECTE); Candida krusei NOT DETECTED (NOT DETECTE); Candida parapsilosis NOT DETECTED (NOT DETECTE); Candida tropicalis NOT DETECTED (NOT DETECTE); Cryptococcus neoformans/gattii NOT DETECTED (NOT DETECTE); Enterobacter cloacae complex NOT DETECTED (NOT DETECTE); Enterobacterales NOT DETECTED (NOT DETECTE); Enterococcus faecalis NOT DETECTED (NOT DETECTE); Enterococcus faecium NOT DETECTED (NOT DETECTE); Haemophilus influenzae NOT DETECTED (NOT DETECTE); Klebsiella aerogenes NOT DETECTED (NOT DETECTE); Klebsiella pneumoniae group NOT DETECTED (NOT DETECTE); Listeria monocytogenes NOT DETECTED (NOT DETECTE); Neisseria meningitidis NOT DETECTED (NOT DETECTE); Proteus spp. NOT DETECTED (NOT DETECTE); Pseudomonas aeruginosa NOT DETECTED (NOT DETECTE); Salmonella spp. NOT DETECTED (NOT DETECTE); Serratia marcescens NOT DETECTED (NOT DETECTE); Staphylococcus epidermidis NOT DETECTED (NOT DETECTE); Staphylococcus lugdunensis NOT DETECTED (NOT DETECTE); Staphylococcus spp. NOT DETECTED (NOT DETECTE); Stenotrophomonas maltophilia NOT DETECTED (NOT DETECTE); Streptococcus agalactiae NOT DETECTED (NOT DETECTE); Streptococcus pneumoniae NOT DETECTED (NOT DETECTE); Streptococcus pyogenes NOT DETECTED (NOT DETECTE); Streptococcus spp. NOT DETECTED (NOT DETECTE)
[2024-04-22 07:06] LABS: Source BLOOD
--- NOTE | 2024-04-22 10:25 | CM.DCFOLLOWU ---
1st attempt 04/22/24, no answer
--- NOTE | 2024-04-23 11:24 | CM.DCFOLLOWU ---
2nd attempt 04/23/24, no answer
--- NOTE | 2024-04-24 13:10 | CM.DCFOLLOWU ---
3rd attempt 04/24/24, no answer
== END 2024-04-21 14:15 | disposition home or self-care (01) ==
LOC: ER 14:43 → MS 14:52
PROVIDERS: Registered Nurse; Admitting Provider Internal Medicine; Emergency Provider Emergency Medicine; Visit Provider Internal Medicine
DX: N30.01 Acute cystitis with hematuria (principal); N17.9 Acute kidney failure, unspecified; R33.9 Retention of urine, unspecified; N13.30 Unspecified hydronephrosis; N40.1 Benign prostatic hyperplasia with lower urinary tract symptoms; N13.8 Other obstructive and reflux uropathy; I10 Essential (primary) hypertension; R07.9 Chest pain, unspecified; I47.19 Other supraventricular tachycardia; R16.0 Hepatomegaly, not elsewhere classified; Z20.822 Contact with and (suspected) exposure to COVID-19; B96.89 Other specified bacterial agents as the cause of diseases classified elsewhere
CPT/HCPCS: 36415; 51702; 71045; 74176; 76775; 80053; 81001; 82800; 83605; 83735; 84100; 84153; 84154; 84443; 84484; 85007; 85014; 85018; 85025; 85027; 85610; 87040; 87086; 87150; 87811; 93005; 94761; 96374; 96375; 97161; 97165; 99285; G0378; J0696; J2405